=== PATIENT | male | born 1985 | race Hispanic/Latino ===

== ENCOUNTER 2019-10-27 14:33 | Outpatient (CLI) | payer OTHER ==
--- NOTE | 2019-10-27 15:42 | RAD ---
THREE VIEWS OF THE THORACIC SPINE: 10/27/19 HISTORY: Osteolytic lesion. Back pain for two months. FINDINGS: Two views of the thoracic spine shows normal height and alignment of the vertebral bodies and interve rtebral discs without fracture or subluxation. No degenerative changes are seen. The visualized poste rior ribs are unremarkable. IMPRESSION: Unremarkable exam. POS: [facility]
== END 2019-10-27 14:34 | disposition home or self-care (01) ==
LOC: BICRAD 14:33
PROVIDERS: ATTEND Surgery
DX: M89.50 Osteolysis, unspecified site (principal)
CPT/HCPCS: 72070